=== PATIENT | female | born 1995 | race Caucasian/White ===

== ENCOUNTER 2020-05-04 07:14 | Emergency (ER) | payer OTHER ==
[~2020-05-04] VITALS: Ht 167.6 cm; Wt 59.0 kg
[2020-05-04 07:28] VITALS: BP 103/60
--- NOTE | 2020-05-04 07:30 | NUR ---
DR ROBLES AT BEDSIDE
== END 2020-05-04 07:43 | disposition home or self-care (01) ==
LOC: ER 07:14
DX: K08.89 Other specified disorders of teeth and supporting structures (principal)